=== PATIENT | female | born 1985 | race Caucasian/White ===

== ENCOUNTER 2019-11-10 07:58 | Day surgery (SDC) | payer OTHER, SELFPAY ==
[~2019-11-10] VITALS: Ht 152.4 cm; Wt 51.7 kg
[2019-11-10] MEDS ORDERED: LIDOCAINE 2% 100 MG/5 ML UJET TP ONE ×2 (10:31→15:35)
[2019-11-10] MEDS ORDERED: MIDAZOLAM 2 MG/2 ML VIAL ONE ×2 (10:31→10:44)
[2019-11-10] MEDS ORDERED: fentaNYL citrate 0.05 MG/ML VIAL ONE (10:31)
[2019-11-10] MEDS ORDERED: fentaNYL citrate 0.05 MG/ML VIAL IVP ONE (15:35)
[2019-11-10] MEDS ORDERED: MIDAZOLAM 2 MG/2 ML VIAL IVP ONE (15:35)
== END 2019-11-10 12:02 | disposition home or self-care (01) ==
LOC: MFCC 07:58 → MDS 07:58
PROVIDERS: ATTEND Internal Medicine Gastroenterology
DX: Z12.11 Encounter for screening for malignant neoplasm of colon (principal); Z80.0 Family history of malignant neoplasm of digestive organs; Z98.51 Tubal ligation status; Z11.59 Encounter for screening for other viral diseases
CPT/HCPCS: 45378; 81025; J2250; J3010; U0003